=== PATIENT | male | born 1995 | race Two or more races ===

== ENCOUNTER 2024-04-02 14:00 | Emergency (ER) | payer BC, SELFPAY ==
[2024-04-02 14:05] VITALS: BP 147/82; PULSE 90; TEMP 37.8; O2SAT 96; BMI 23.1
--- NOTE | 2024-04-02 14:10 | ED_ITS ---
HPI HPI - General Adult General Chief complaint: Nausea/Vomiting/Diarrhea Stated complaint: FLU LIKE SYMPTOMS Time Seen by Provider: 04/02/24 14:03 Source: patient Mode of arrival: walk-in Limitations: no limitations History of Present Illness HPI narrative: 28-year-old male presents for a 2-day history of nausea and vomiting, no diarrhea. He has also had a slight cough and he states he has been running a fever of 102.7. No known ill contacts. Related Data Previous Rx's ?Medication ?Instructions ?Recorded ondansetron 4 mg disintegrating 4 mg PO Q6H PRN nausea and 04/02/24 tablet vomiting #20 tabs Allergies Allergy/AdvReac Type Severity Reaction Status Date / Time No Known Drug Allergies Allergy Verified 04/02/24 14:05 Opioid HPI Opioid Management Most Recent Opioid Data: Last JUL Pain Assessment 04/02/24 15:02 Review of Systems ROS Narrative A ten point review of systems is negative except as noted above. PFSH PFSH Social History Little interest or pleasure in doing things: not at all Feeling down, depressed, or hopeless: not at all Exam Narrative Exam Narrative: Nurses note and vital signs reviewed and patient is not hypoxic. General: The patient appears well and in no apparent distress. Patient is resting comfortably on cart. Skin: Warm, dry, no pallor noted. There is no rash noted. Head: Normocephalic, atraumatic Eye: Normal conjunctiva, no drainage Ears, Nose, Mouth, and Throat: oral mucosa is moist. Nares patent. Cardiovascular: Regular Rate and Rhythm Respiratory: Patient is in no distress, no accessory muscle use, lungs are clear to auscultation, no wheezing, rales or rhonchi Back: non-tender GI: no tenderness to palpation, no masses appreciated. No rebound, guarding, or rigidity noted. Musculoskeletal: The patient has no evidence of calf tenderness, no pitting marcia ma, symmetrical pulses noted bilaterally Neurological: A&O, normal speech Psychiatric: Cooperative Constitutional Vital Signs, click to edit/add: Last Vital Signs Temp 101.4 F H 04/02/24 15:45 Pulse 90 04/02/24 14:05 Resp 18 04/02/24 14:05 BP 147/82 H 04/02/24 14:05 Pulse Ox 96 04/02/24 14:05 O2 Del Method Room Air 04/02/24 14:05 Course Vital Signs Vital signs: Vital Signs Temperature 100.1 F 04/02/24 14:05 Pulse Rate 90 04/02/24 14:05 Respiratory Rate 18 04/02/24 14:05 Blood Pressure 147/82 H 04/02/24 14:05 Pulse Oximetry 96 04/02/24 14:05 Oxygen Delivery Method Room Air 04/02/24 14:05 Temperature 101.4 F H 04/02/24 15:45 Pulse Rate 90 04/02/24 14:05 Respiratory Rate 18 04/02/24 14:05 Blood Pressure 147/82 H 04/02/24 14:05 Pulse Oximetry 96 04/02/24 14:05 Oxygen Delivery Method Room Air 04/02/24 14:05 Medical Decision Making MDM Narrative Medical decision making narrative: Her workup including CAT scan of the abdomen is negative. She is feeling improved and will be discharged home. She was encouraged to take her Protonix daily and was prescribed Zofran for nausea. Treatment diagnosis and follow-up were discussed with the patient. Differential Diagnosis Differential Diagnosis: Small bowel obstruction, gastroenteritis, pancreatitis, gastritis Lab Data Lab results reviewed: Yes I reviewed the patient's lab results Labs: Lab Results 04/02/24 04/02/24 Range/Units 14:16 14:20 WBC 9.4 (4.0-11.0) 10^3/uL RBC 4.97 (4.70-6.10) 10^6/uL Hgb 15.3 (14.0-18.0) g/dL Hct 42.8 (42.0-54.0) % MCV 86.1 (80.0-94.0) fL MCH 30.8 (25.9-34.0) pg MCHC 35.7 H (29.9-35.2) g/dL RDW 11.0 (11.0-15.0) % Plt Count 198 (150-450) 10^3/uL MPV 10.8 (9.5-13.5) fL Neut % (Auto) 83.0 H (43.0-75.0) % Lymph % (Auto) 8.0 L (20.5-60.0) % [place] % (Auto) 8.2 (1.7-12.0) % Eos % (Auto) 0.0 L (0.9-7.0) % Baso % (Auto) 0.4 (0.2-2.0) % Neut # (Auto) 7.8 H (1.4-6.5) 10^3/uL Lymph # (Auto) 0.8 L (1.2-3.8) 10^3/uL [place] # (Auto) 0.8 (0.3-0.8) 10^3/uL Eos # (Auto) 0.0 (0.0-0.7) 10^3/uL Baso # (Auto) 0.0 (0.0-0.1) 10^3/uL Abs Immat Gran (auto) 0.04 H (0.00-0.03) 10^3/uL Imm/Tot Granulo (auto) 0.4 (0.0-0.5) % Sodium 133 L (136-145) mmol/L Potassium 3.6 (3.5-5.1) mmol/L Chloride 96 L (98-107) mmol/L Carbon Dioxide 25.2 (21.0-32.0) mmol/L Anion Gap 15.4 BUN 14.0 (7.0-18.0) mg/dL Creatinine 1.47 H (0.70-1.30) mg/dL Est GFR ( Amer) >60 (>=60 mL/min/1.73m^2) Est GFR (Non-Af Amer) 57 L (>=60 mL/min/1.73m^2) BUN/Creatinine Ratio 9.5 Glucose 146 H (74-106) mg/dL Calcium 9.0 (8.5-10.1) mg/dL Influenza Type A Ag Negative Influenza Type B Ag Negative SARS-CoV-2 Ag (CV2AG) Negative (NEGATIVE) Imaging Data CT scan - abdomen: Radiologist's impression: IMPRESSION: No acute abdominal or pelvic process. Electronically authenticated by: LUCY JORGE Date: 04/02/2024 15:30 Discharge Plan Discharge Chief Complaint: Nausea/Vomiting/Diarrhea Clinical Impression: Nausea and vomiting Patient Disposition: Home, Self-Care Time of Disposition Decision: 15:47 Condition: Good Mode of Transportation: Private Vehicle Prescriptions / Home Meds: New ondansetron 4 mg tablet,disintegrating 4 mg PO Q6H PRN (Reason: nausea and vomiting) Qty: 20 0RF Print Language: Israeli Instructions: Acute Nausea and Vomiting (ED) Referrals: Physician,Non-Staff, MD [Primary Care Provider] - 1 week
[2024-04-02] MEDS: ONDANSETRON PF 4 MG/2 ML VIAL IV (14:26)
[2024-04-02] MEDS: 0.9 % SODIUM CHLORIDE 1,000 ML 1000 ML IV ×2 (14:26→15:49)
[2024-04-02 14:28] LABS: Basophils Percent Auto 0.4 % (0.2-2.0); Hematocrit 42.8 % (42.0-54.0); Hemoglobin 15.3 g/dL (14.0-18.0); Immature Granulocytes Abs Auto 0.04 10^3/uL (0.00-0.03); Immature Granulocytes Pct Auto 0.4 % (0.0-0.5); Lymphocytes Absolute Auto 0.8 10^3/uL (1.2-3.8); Mean Corpuscular HGB Conc 35.7 g/dL (29.9-35.2); Mean Corpuscular Hemoglobin 30.8 pg (25.9-34.0); Mean Corpuscular Volume 86.1 fL (80.0-94.0); Mean Platelet Volume 10.8 fL (9.5-13.5); Monocytes Absolute Auto 0.8 10^3/uL (0.3-0.8); Monocytes Percent Auto 8.2 % (1.7-12.0); Neutrophils Absolute Auto 7.8 10^3/uL (1.4-6.5); Platelet Count 198 10^3/uL (150-450); Red Blood Count 4.97 10^6/uL (4.70-6.10); White Blood Count 9.4 10^3/uL (4.0-11.0)
[2024-04-02 14:37] LABS: Anion Gap 15.4; BUN Creatinine Ratio 9.5; Carbon Dioxide 25.2 mmol/L (21.0-32.0); Chloride 96 mmol/L (98-107); Estimated GFR (African America >60 (>=60 mL/min/1.73m^2); Estimated GFR (Non-African Ame 57 (>=60 mL/min/1.73m^2); Glucose 146 mg/dL (74-106); Potassium 3.6 mmol/L (3.5-5.1); Sodium 133 mmol/L (136-145)
[2024-04-02 14:39] LABS: Influenza Virus A Antigen Negative; Influenza Virus B Antigen Negative; Internal Control Within Normal Limits; SARS-CoV-2 Ag NEGATIVE (NEGATIVE)
[2024-04-02 15:02] VITALS: TEMP 37.8
[2024-04-02] MEDS: ACETAMINOPHEN 325 MG TABLET 650 MG PO (15:02)
[2024-04-02 15:45] VITALS: TEMP 38.6
[2024-04-02 15:49] VITALS: TEMP 38.6
[2024-04-02] MEDS: IBUPROFEN 400 MG TABLET 800 MG PO (15:49)
[2024-04-02 15:54] VITALS: BP 118/63; PULSE 74; O2SAT 97
--- NOTE | 2024-04-02 16:03 | ED.NAVMDI1 ---
HPI - Nausea/Vomiting/Diarrhea General Chief complaint: Nausea/Vomiting/Diarrhea Stated complaint: FLU LIKE SYMPTOMS Time Seen by Provider: 04/02/24 14:03 Source: patient Mode of arrival: walk-in Limitations: no limitations History of Present Illness HPI Narrative: 28-year-old male presents for a 2-day history of nausea and vomiting, no diarrhea. He has also had a slight cough and he states he has been running a fever of 102.7. No known ill contacts. Related Data Previous Rx's ?Medication ?Instructions ?Recorded ondansetron 4 mg disintegrating 4 mg PO Q6H PRN nausea and 04/02/24 tablet vomiting #20 tabs Allergies Allergy/AdvReac Type Severity Reaction Status Date / Time No Known Drug Allergies Allergy Verified 04/02/24 14:05 Review of Systems ROS Narrative A ten point review of systems is negative except as noted above. PFSH PFSH Social History Little interest or pleasure in doing things: not at all Feeling down, depressed, or hopeless: not at all Exam Narrative Exam Narrative: Nurses note and vital signs reviewed and patient is not hypoxic. General: The patient appears in no apparent distress. Skin: Warm, dry, no pallor noted. There is no rash noted. Head: Normocephalic, atraumatic Eye: Normal conjunctiva, no drainage Ears, Nose, Mouth, and Throat: oral mucosa is moist. Nares patent. Cardiovascular: Regular Rate and Rhythm, not tachycardic Respiratory: Patient is in no distress, no accessory muscle use, lungs are clear to auscultation, no wheezing, rales or rhonchi Back: non-tender GI: Soft and nontender Musculoskeletal: The patient has no evidence of calf tenderness, no pitting edema, symmetrical pulses noted bilaterally Neurological: A&O, normal speech Psychiatric: Cooperative Constitutional Vital Signs, click to edit/add: Last Vital Signs Temp 98.5 F 04/02/24 17:00 Pulse 78 04/02/24 17:00 Resp 18 04/02/24 17:00 BP 118/61 04/02/24 17:00 Pulse Ox 97 04/02/24 17:00 O2 Del Method Room Air 04/02/24 14:05 Course Vital Signs Vital signs: Vital Signs Temperature 100.1 F 04/02/24 14:05 Pulse Rate 90 04/02/24 14:05 Respiratory Rate 18 04/02/24 14:05 Blood Pressure 147/82 H 04/02/24 14:05 Pulse Oximetry 96 04/02/24 14:05 Oxygen Delivery Method Room Air 04/02/24 14:05 Temperature 98.5 F 04/02/24 17:00 Pulse Rate 78 04/02/24 17:00 Respiratory Rate 18 04/02/24 17:00 Blood Pressure 118/61 04/02/24 17:00 Pulse Oximetry 97 04/02/24 17:00 Oxygen Delivery Method Room Air 04/02/24 14:05 MDM - Nausea/Vomiting/Diarrhea MDM Narrative Medical decision making narrative: COVID and influenza test are negative. He is feeling improved with IV fluids and Zofran and his temperature is down now. He is able to be discharged home with a prescription for Zofran. Treatment diagnosis and follow-up were discussed with the patient Differential Diagnosis Differential diagnosis: Likely food poisoning, gastroenteritis and dehydration Lab Data Attestation: I reviewed the patient's lab results. Labs: Lab Results 04/02/24 04/02/24 Range/Units 14:16 14:20 WBC 9.4 (4.0-11.0) 10^3/uL RBC 4.97 (4.70-6.10) 10^6/uL Hgb 15.3 (14.0-18.0) g/dL Hct 42.8 (42.0-54.0) % MCV 86.1 (80.0-94.0) fL MCH 30.8 (25.9-34.0) pg MCHC 35.7 H (29.9-35.2) g/dL RDW 11.0 (11.0-15.0) % Plt Count 198 (150-450) 10^3/uL MPV 10.8 (9.5-13.5) fL Neut % (Auto) 83.0 H (43.0-75.0) % Lymph % (Auto) 8.0 L (20.5-60.0) % [place] % (Auto) 8.2 (1.7-12.0) % Eos % (Auto) 0.0 L (0.9-7.0) % Baso % (Auto) 0.4 (0.2-2.0) % Neut # (Auto) 7.8 H (1.4-6.5) 10^3/uL Lymph # (Auto) 0.8 L (1.2-3.8) 10^3/uL [place] # (Auto) 0.8 (0.3-0.8) 10^3/uL Eos # (Auto) 0.0 (0.0-0.7) 10^3/uL Baso # (Auto) 0.0 (0.0-0.1) 10^3/uL Abs Immat Gran (auto) 0.04 H (0.00-0.03) 10^3/uL Imm/Tot Granulo (auto) 0.4 (0.0-0.5) % Sodium 133 L (136-145) mmol/L Potassium 3.6 (3.5-5.1) mmol/L Chloride 96 L (98-107) mmol/L Carbon Dioxide 25.2 (21.0-32.0) mmol/L Anion Gap 15.4 BUN 14.0 (7.0-18.0) mg/dL Creatinine 1.47 H (0.70-1.30) mg/dL Est GFR ( Amer) >60 (>=60 mL/min/1.73m^2) Est GFR (Non-Af Amer) 57 L (>=60 mL/min/1.73m^2) BUN/Creatinine Ratio 9.5 Glucose 146 H (74-106) mg/dL Calcium 9.0 (8.5-10.1) mg/dL Influenza Type A Ag Negative Influenza Type B Ag Negative SARS-CoV-2 Ag (CV2AG) Negative (NEGATIVE) Discharge Plan Discharge Chief Complaint: Nausea/Vomiting/Diarrhea Clinical Impression: Gastroenteritis Patient Disposition: Home, Self-Care Time of Disposition Decision: 17:08 Condition: Good Mode of Transportation: Private Vehicle Prescriptions / Home Meds: New ondansetron 4 mg tablet,disintegrating 4 mg PO Q6H PRN (Reason: nausea and vomiting) Qty: 20 0RF Print Language: Bulgarian Instructions: Gastroenteritis (ED), Acute Nausea and Vomiting (ED) Referrals: Physician,Non-Staff, MD [Primary Care Provider] - 1 week
[2024-04-02 17:00] VITALS: BP 118/61; PULSE 78; TEMP 36.9; O2SAT 97
== END 2024-04-02 17:24 | disposition home or self-care (01) ==
PROVIDERS: Emergency Provider Emergency Medicine
DX: K52.9 Noninfective gastroenteritis and colitis, unspecified (principal); Z20.822 Contact with and (suspected) exposure to COVID-19
CPT/HCPCS: 36415; 80048; 85025; 87804; 87811; 96361; 96374; 99284; J2405